=== PATIENT | male | born 1990 | race Caucasian/White ===

== ENCOUNTER 2024-07-06 05:38 | Emergency (ER) | payer OTHER ==
[~2024-07-06] VITALS: Ht 170.2 cm; Wt 147.4 kg
[~2024-07-06 05:38] MED LIST: MUCINEX DM ER1 EAC1 PO
[2024-07-06 05:45] VITALS: PULSE 68; RESP 20; TEMP 97.9; O2SAT 98
[2024-07-06] MEDS ORDERED: METHOCARBAMOL750 MG PO (06:52)
[2024-07-06] MEDS: ORPHENADRINE CITRATE 30 MG/ML VIAL IM ONE (07:09)
[2024-07-06] MEDS: KETOROLAC TROMETHAMINE 60 MG/2 ML VIAL IM ONE (07:09)
== END 2024-07-06 07:30 | disposition home or self-care (01) ==
LOC: ER 06:05
DX: M54.6 Pain in thoracic spine (principal); S29.012A Strain of muscle and tendon of back wall of thorax, initial encounter; X50.1XXA Overexertion from prolonged static or awkward postures, initial encounter; Y92.89 Other specified places as the place of occurrence of the external cause; J45.909 Unspecified asthma, uncomplicated; M19.09 Primary osteoarthritis, other specified site; E66.01 Morbid (severe) obesity due to excess calories; F17.210 Nicotine dependence, cigarettes, uncomplicated
CPT/HCPCS: 99283; J1885; J2360